=== PATIENT | female | born 2000 | race Two or more races ===

== ENCOUNTER 2024-05-30 23:29 | Emergency (ER) | payer MEDICAID, SELFPAY ==
[2024-05-30 23:33] VITALS: BMI 29.8
[2024-05-30 23:37] VITALS: BP 127/86; PULSE 81; RESP 17; O2SAT 100
--- NOTE | 2024-05-30 23:41 | EDNOTE_ITS ---
ED Wound/Laceration-RME/HPI General Chief Complaint: Wound/Laceration Stated Complaint: lac to rt arm Time Seen by Provider: 05/30/24 23:41 Arrival date/time: 05/30/24 23:29 RME / HPI RME / HPI narrative: Dr. Calabrese?s Main ED Evaluation: 24yo female presents to the ED for a chief complaint of a laceration to her right forearm. Patient has been drinking tonight. Reportedly, the patient had been angry and punched a window just [employer]. Patient is awake, but intoxicated, and is not providing any other history. Family applied a tourniquet prior to bringing the patient in. Related Data Home Medications ?Medication ?Instructions ?Recorded ?Confirmed prenat.vits,adrian,lsl-bygh-sthxt 1 tab PO QDAY 11/20/21 11/20/21 Previous Rx's ?Medication ?Instructions ?Recorded ferrous sulfate 325 mg (65 mg 325 mg PO BID #60 tabs 11/22/21 iron) tablet acetaminophen 500 mg tablet 1,000 mg (2 x 500 mg) PO Q6H PRN 05/31/24 pain 5 days #40 tabs cephalexin 500 mg capsule 500 mg PO TID 7 days #21 caps 05/31/24 ibuprofen 600 mg tablet 600 mg PO Q6H PRN pain 5 days #20 05/31/24 tabs Allergies Allergy/AdvReac Type Severity Reaction Status Date / Time No Known Allergies Allergy Verified 11/20/21 05:37 Review of Systems Review of Systems Systems Reviewed: All systems reviewed, normal except as documented Past Medical History Past Medical History NEUROLOGIC: Negative Neurological Disorders or Seizures CARDIAC: Negative Cardiac Disorders or Congestive Heart Failure RESPIRATORY: Negative Chronic Obstructive Pulmonary Disease (COPD) GASTROINTESTINAL: Negative Gastrointestinal Disorders, Hepatitis or Colorectal Cancer GENITOURINARY: Negative Genitourinary Disorders, Renal Disease or Prostate Cancer REPRODUCTIVE: Positive Previous Pregnancies; Negative Breast Cancer, Endometriosis, Genital Herpes, Gonorrhea, Pelvic Inflammatory Disease, Syphilis, Testicular Cancer or Uterine Prolapse MUSCULOSKELETAL: Negative Musculoskeletal Disorders or Bone Cancer ENDOCRINE: Negative Endocrine Disorders, Diabetes Mellitus Type 1 or Diabetes Mellitus Type 2 HEMATOLOGIC: Negative Blood Disorders PSYCHO/SOCIAL: Positive Depression, Anxiety and Depression (CO UNSELING, MEDS) OTHER HISTORY: Positive Hospitalization; Negative Autoimmune Disease, Down Syndrome, Developmental Delay, Shingles, Falls, Blood Transfusions, Blood Transfusion Reaction, Anesthesia Reactions, Organ Transplant, Chemotherapy, Radiation Therapy, Hyperbaric Therapy, MRSA, VRSA, Vancomycin-Resistant Enterococci, Human Immunodeficiency Virus (HIV), Chicken Pox, Measles, Mumps, Rubella (Stateless Measles), Pertussis, Clostridium Difficile, Cancer, Breast Cancer, Cervical Cancer, Colorectal Cancer, Lung Cancer, Ovarian Cancer, Prostate Cancer or Testicular Cancer Family History FAMILY HISTORY: Positive Family Cardiac Disorders (FATHER, MOTHER- HTN, FATHER- HIGH CHOLESTEROL.); Negative Family Psychiatric Problems, Family Respiratory Disorders, Family Gastrointestinal Problems, Family Cancer, Family Surgery or Family Anesthesia Reaction Surgical History SURGICAL: Negative Section or Organ Transplant Social History SMOKING STATUS: Unknown if ever smoked SECOND HAND EXPOSURE: No SUBSTANCE USE: does not use ED Exam Narrative Physical exam: GENERAL APPEARANCE: alert and oriented x 4, well-developed, well-nourished, no acute distress VITALS: All vitals were reviewed and the pulse ox is 100% on room air, which is normal according to my interpretation. HEENT: Normocephalic, atraumatic; pupils equal, round, reactive to light; EOMI; mucous membranes pink, moist; oropharynx clear NECK: Supple LUNGS: CTABL; no wheezes, no rales, no rhonchi HEART: Regular rate, regular rhythm; normal S1, S2; no murmurs ABDOMEN: non distended; normal BS; soft, no tenderness, no guarding, no rebound; no masses, no organomegaly, no hernia BACK: no CVA tenderness EXTREMITIES: 7 cm open wound with exposed subcutaneous fat and muscle to the right lateral forearm, there is a lacerated large vein that is dripping dark blo od; no edema NEUROLOGIC: awake; alert and oriented x4; cranial nerves II-XII grossly intact; no focal sensory or motor deficits PSYCHIATRIC: appropriate mood and affect SKIN: warm, dry, normal color; no rashes Course Quality Measures none Orders Category Date Time Status Bedside Blood Glucose NOW Care 05/30/24 23:[address] Screening NOW Care 05/30/24 23:57 Completed Oracle Etl Developer NOW Care 05/30/24 23:43 Completed Continuous Pulse Oximetry NOW Care 05/30/24 23:43 Completed Insert IV NOW Care 05/30/24 23:44 Completed NPO NOW Care 05/30/24 23:[address] angio UE RT Stat Exams 05/30/24 23:56 Completed XR hand RT 2V Stat Exams 05/30/24 23:57 Completed Alcohol, Blood Medical Stat Lab 05/30/24 23:55 Completed CBC Stat Lab 05/30/24 23:55 Completed Comprehensive Metabolic Panel Stat Lab 05/30/24 23:55 Completed Drug Screen,Urine Stat Lab 05/31/24 00:31 Completed HCG Qualitative,Urine Stat Lab 05/31/24 00:31 Completed Lactate (Lactic Acid) Stat Lab 05/30/24 23:55 Completed Lactic Acid, 3 HR Stat Lab 05/31/24 02:55 Completed Partial Thromboplastin Time Stat Lab 05/30/24 23:55 Completed Prothrombin Time with INR Stat Lab 05/30/24 23:55 Completed Troponin I Stat Lab 05/30/24 23:55 Completed Urinalysis Stat Lab 05/31/24 00:31 Completed Lidocaine 1% 20 ml [Xylocaine 1% 20 ML] Med 05/31/24 06:20 Discontinued 20 ml IM X1 ONE Lidocaine 1% 20 ml [Xylocaine 1% 20 ML] Med 05/31/24 06:23 Discontinued 20 ml IM X1 ONE Lidocaine 1% 20 ml [Xylocaine 1% 20 ML] Med 05/31/24 04:47 Discontinued 40 ml .ROUTE .STK-MED ONE Lidocaine 1% 20 ml [Xylocaine 1% 20 ML] Med 05/31/24 06:19 Discontinued 40 ml IM X1 ONE Lidocaine Inj 2% 20 ml [Xylocaine Inj 2% 20 ml] Med 05/31/24 04:49 Discontinued 40 ml INFL X1 ONE Ringers Lactated 1000 ml [Lactated Ringers] 1,000 ml Med 05/30/24 23:41 Discontinued IV 999 mls/hr Ringers Lactated 1000 ml [Lactated Ringers] 1,000 ml Med 05/30/24 23:42 Discontinued IV 999 mls/hr Sodium Chloride 0.9% 1000 ml [Ns] 1,000 ml Med 05/31/24 03:08 Discontinued IV 999 mls/hr ceFAZolin/D5W 1 GM IVPB [Ancef Ivpb] Med 05/30/24 23:59 Discontinued 1 gm in 50 ml IV X1 Vital Signs Vital signs: Vital Signs Pulse Rate 81 05/30/24 23:37 Respiratory Rate 17 05/30/24 23:37 Blood Pressure 127/86 H 05/30/24 23:37 Pulse Oximetry (%) 100 05/30/24 23:37 Procedures -ED Laceration Laceration 1: Site: upper extremity (forearm) Side (If applicable): right Size (cm): 7 Description: other (open) Depth: involves muscle layer (exposed subcutaneous fat and muscle) Local Anesthetic: lidocaine 1% Amount of anesthesia used (mL): 9 Pre-repair: wound explored and irrigated extensively Skin layer closed with: vicryl Size (cm): 4-0 Number of sutures: 19 Technique: simple, interrupted Subcutaneous layer closed with: vicryl Size: 4-0 Number of sutures: 10 Technique: simple, interrupted Muscle layer closed with: vicryl Size: 4-0 Number of sutures: 10 Technique: simple, interrupted Wound / Laceration MDM Narrative MDM Narrative:: Scribe Attestation: 05/30/24 - Kristyn Walker am scribing for and in the presence of Dr. Calabrese. Patient data External records reviewed:: [facility] previous records (Per chart review, patient has no relevant previous ED visits.) Clinical information provided by:: patient Social determinants that could affect healthcare access:: alcohol use Patient has the following chronic illnesses:: none How is presenting disease/condition affected by chronic disease/condition?: no chronic disease Evaluation data The following diagnostics were reviewed and interpreted by me:: lab results and radiology exam(s) Lab and/or radiology exams considered but not ordered:: none Interpretation Summary: CBC is normal, PT and INR are normal, PTT is normal, Potassium is slightly low at 3.1, Lactic Acid is elevated at 3.1, troponin is normal, Blood alcohol is elevated at 266.0, UA is unremarkable, HCG is negative, UDS is positive for marijuana, according to my interpretation. Right hand x-ray shows no fracture, no dislocation, no foreign body, according to my interpretation. -------- Telerad Preliminary Report Draft Patient: NICKOLAS WASHINGTON. Record#: [id number] Birthdate: 2000 Age/Sex: 24 / F Location: [facility] Attending Dr: Ordering Physician: Date of Service: Procedure(s): Accession Number(s): cc: ~ CT angiogram of right upper extremity with intravenous contrast (axial sections with sagittal and coronal reformats) May 31, 2024 0021 hours Clinical History: Trauma, large laceration Comparison: No prior study is available for comparison. Findings: There is a large soft tissues laceration of the posterolateral surface of the upper third of right forearm. No contrast extravasation. No evidence of arterial injury, occlusion or thrombus. The subclavian, axillary and brachial arteries are well opacified and patent. No evidence of arterial injury, occlusion or thrombus. The radial and ulnar arteries are patent. No evidence of fracture. Impression: Large soft tissues laceration of posterolateral surface of upper third of the right forearm. No evidence of arterial injury, occlusion or thrombus. No evidence of fracture. Report Electronically Signed By: Amish Márquez 05/31/2024 2:49:40 AM [EST] Medications / Prescriptions Medications or Prescriptions considered but not ordered:: none Medication administrations:: Medication Administration History Discontinued Medications Lactated Ringer's (Lactated Ringers) 1,000 mls @ 999 mls/hr IV .Q1H1M ONE Stop: 05/31/24 00:41 Last Infusion: 05/31/24 01:11 Dose: Infused Documented By: Admin: 05/30/24 23:43 Dose: 999 mls/hr Documented By: DELILAH Lactated Ringer's (Lactated Ringers) 1,000 mls @ 999 mls/hr IV .Q1H1M ONE Stop: 05/31/24 00:42 Last Infusion: 05/31/24 01:11 Dose: Infused Documented By: Admin: 05/30/24 23:44 Dose: 999 mls/hr Documented By: DELILAH Cefazolin Sodium/Dextrose (Ancef Ivpb) 1 gm in 50 mls @ 100 mls/hr IV X1 ONE Stop: 05/31/24 00:28 Last Infusion: 05/31/24 02:12 Dose: Infused Documented By: Admin: 05/31/24 00:40 Dose: 100 mls/hr Documented By: DELILAH Sodium Chloride (Ns) 1,000 mls @ 999 mls/hr IV .Q1H1M ONE Stop: 05/31/24 04:08 Last Infusion: 05/31/24 05:13 Dose: Infused Documented By: Admin: 05/31/24 03:45 Dose: 999 mls/hr Documented By: DELILAH Lidocaine HCl (Lidocaine Inj 2% 20 Ml Vial) 40 ml INFL X1 ONE Stop: 05/31/24 04:50 Last Admin: 05/31/24 06:18 Dose: Not Given Documented By: KD Non-Admin Reason: Discontinued Lidocaine HCl (Lidocaine Hcl 1% 20 Ml Vial) Confirm Administered Dose 40 ml .ROUTE .STK-MED ONE Stop: 05/31/24 04:48 Last Admin: 05/31/24 06:01 Dose: Not Given Documented By: KD Non-Admin Reason: Discontinued Lidocaine HCl (Lidocaine Hcl 1% 20 Ml Vial) 40 ml IM X1 ONE Stop: 05/31/24 06:20 Last Admin: 05/31/24 06:24 Dose: Not Given Documented By: KD Non-Admin Reason: Discontinued Lidocaine HCl (Lidocaine Hcl 1% 20 Ml Vial) 20 ml IM X1 ONE Stop: 05/31/24 06:21 Last Admin: 05/31/24 06:25 Dose: 20 ml Documented By: KD Lidocaine HCl (Lidocaine Hcl 1% 20 Ml Vial) 20 ml IM X1 ONE Stop: 05/31/24 06:24 Last Admin: 05/31/24 06:26 Dose: 20 ml Documented By: KD see above, if any Consultations Consultation(s) initiated? (list below): Yes Consultation #1 (Physician, Specialty, Details): Discussed case with [Dr. Wellington, trauma surgeon from [facility]] regarding [consultation]. Discussed patients ED course, exam findings, labs, and radiology results. Requests a CTA of the right arm. Time: 23:41 Diagnosis Wound Differential Diagnosis: laceration and other (alcohol intoxication, polysubstance abuse, venous bleed, arterial bleed) Most likely diagnosis given after review of the tests above:: see below Admission Indicated Admission indicated?: not indicated Admission Request Was there a request for admission?: No Disposition Plan Disposition Plan: Discharge Discharge Attestation Discharge Attestation: The patient and all family members were given an opportunity to ask questions and understood the discharge instructions. Discharge instructions specifically effects, indications for sooner follow up or return to the emergency department, and the expected course of current diagnosis. Patient condition: Stable Critical Care Time Critical Care Time Critical Care Time: Yes Total Critical Care Time (min.): 35 Attestation: The high probability of sudden, clinically significant deterioration in the patient?s condition required the highest level of my preparedness to intervene urgently. The services I provided to this patient were to treat and/or prevent clinically significant deterioration. Services included the following: chart data review, reviewing nursing notes and/or old charts, documentation time, literacy consultant collaboration regarding findings and treatment options, medication orders and management, direct patient care, vital sign assessments and ordering, interpreting and reviewing diagnostic studies and lab tests. Aggregate critical care time includes only time during which I was engaged in work directly related to the patient?s care, as described above, whether at bedside or elsewhere in the Emergency Department. It did not include time spent performing other reported procedures or the services of residents, students, nurses or physician assistants. Discharge Plan Plan Patient Disposition: HOME (Self Care) Disposition Comment: Stable for discharge Patient condition on transfer: Stable Prescriptions/Referrals Prescriptions/Med Rec: New ibuprofen 600 mg tablet 600 mg PO Q6H PRN (Reason: pain) 5 Days Qty: 20 0RF acetaminophen 500 mg tablet 1,000 mg PO Q6H PRN (Reason: pain) 5 Days Qty: 40 0RF cephalexin 500 mg capsule 500 mg PO TID 7 Days Qty: 21 0RF No Action prenat.vits,adrian,eve-cerm-tckua Tablet 1 tab PO QDAY ferrous sulfate 325 mg (65 mg iron) tablet 325 mg PO BID Qty: 60 2RF Referrals: Smith Mortensen MD [Primary Care Provider] - In 1 week Problem List Clinical Impression: Laceration of forearm, Alcohol intoxication Patient/Caregiver Discharge Instructions Discharge Activity: activity as tolerated Education Materials: ED Alcohol Intoxication, ED Laceration: All Closures Additional Instructions: Please have the sutures removed in 7 days. You can have this done here in the emergency department, in the [facility] or in urgent care. You should take the antibiotics until they are completely gone. Take the acetaminophen and the ibuprofen for pain as needed You should keep this wound covered. Use [id number] antibiotic ointment on the wound. Print Language: Divehi Stand Alone Forms: Sylvia Award Info., Work/School Release, Patient Portal Info Letter
[2024-05-30] MEDS: RINGERS LACTATED 1000 ML 1,000 ML 999 ML IV ×2 (23:43→23:44)
[2024-05-30 23:45] VITALS: BP 127/87; PULSE 126; RESP 18; O2SAT 100
[2024-05-30 23:46] VITALS: PULSE 132
--- NOTE | 2024-05-30 23:56 | XR_ITS ---
Examination: CTA right upper extremity with intravenous contrast 2-D reconstructions 3-D reconstructions, vascular Date and time of exam: May 31, 2024 0021 hrs. Indications: Patient punched a window with right arm today with lacerations to the right arm CTDI: vol (mGy) 12.3 DLP: (mGycm) 976 Technique: Multiple axial images right upper extremity post intravenous administration 60 cc [id number] 2-D sagittal and coronal reconstructions. 3-D angiographic renderings, 3-D volume renderings, 3D post processing, vascular maximum intensity projections obtained. Low dose protocols were performed. One or more of the following dose reduction techniques were used; automated exposure control, adjustment of the mA and/or KV according to patient size, use of iterative reconstruction technique. Findings: Right innominate, right subclavian right axillary arteries intact Right brachial artery radial arteries intact There is poor filling of the ulnar artery Large soft tissue defect lateral right forearm No abnormal contrast extravasation depicted Impression: Large soft tissue laceration lateral right forearm Right subclavian axillary brachial and radial arteries are well visualized and intact There is poor visualization of the ulnar artery No abnormal contrast extravasation from the arm arterial system noted Recommend follow-up ultrasound arterial Doppler of the right forearm as clinically warranted
[2024-05-30 23:57] LABS: Lactate (Lactic Acid) 3.1 mMol/L (0.4-2.0)
--- NOTE | 2024-05-30 23:57 | XR_ITS ---
Examination: Hand, right 2 views Technique: Hand AP, lateral 2 views Date and time of exam: 29/06/2023 1159 hrs. Indications: Right hand lacerations and swelling today Findings: Soft tissue swelling at the level of the first metacarpal phalangeal joint No opaque foreign body No fracture These are nonstandard images Impression: Limited study No opaque foreign bodies noted
[2024-05-31 00:05] LABS: Basophils % (Auto) 0 % (0-2.5); Eosinophils # (Auto) 0.1 Thou/mm3 (0.0-0.5); Eosinophils % (Auto) 1 % (0-10); Hematocrit 36.7 % (36.0-46.0); Hemoglobin 12.8 g/dL (12.0-16.0); Immature Granulocytes % (Auto) 0 % (0-0); Immature Granulocytes Auto 0.01 Thou/mm3 (0.00-0.00); Lymphocytes # (Auto) 4.7 Thou/mm3 (1.0-4.8); Lymphocytes % (Auto) 46 % (10-50); Mean Corpuscular HGB Conc 34.9 g/dl (31.0-37.0); Mean Corpuscular Hemoglobin 31.4 pg (25.0-35.0); Mean Corpuscular Volume 90 fL (80-100); Monocytes # (Auto) 0.7 Thou/mm3 (0.0-0.8); Monocytes % (Auto) 7 % (0-12); Neutrophils # (Auto) 4.7 Thou/mm3 (1.8-7.7); Neutrophils % (Auto) 46 % (37-80); Nucleated Red Blood Cell % 0 /100 WBC (0); Platelet Count 304 Thou/mm3 (140-440); RDW Standard Deviation 41.2 fL (36.4-46.3); Red Blood Count 4.07 Miln/mm3 (4.00-5.20); White Blood Count 10.3 Thou/mm3 (3.6-11.0)
[2024-05-31 00:21] LABS: Partial Thromboplastin Time 24.8 Seconds (22.0-36.0); Prothrombin Time 11.3 Seconds (9.0-12.2)
[2024-05-31 00:24] LABS: Alanine Aminotransferase 37 U/L (10-49); Albumin, Serum 4.3 gm/dL (3.5-5.0); Albumin/Globulin Ratio 1.8 (1.2-2.2); Alkaline Phosphatase 82 U/L (46-116); Anion Gap 11 (7-16); Aspartate Amino Transferase 45 U/L (0-34); BUN/Creatinine Ratio 10 Ratio (12-20); Bilirubin,Total 1.1 mg/dL (0.3-1.2); Blood Urea Nitrogen 8 mg/dL (9-23); Calcium 9.3 mg/dL (8.3-10.6); Calcium (Corrected) 9.3 mg/dL (8.5-10.1); Carbon Dioxide 22.9 mMol/L (20.0-31.0); Chloride 109 mMol/L (98-107); Creatinine (Component) 0.8 mg/dL (0.6-1.3); Estimated Creatinine Clearance 116.3 mL/min (>60); Globulin 2.4 gm/dL (2.3-3.5); Glucose 132 mg/dL (74-106); Osmolality,Calculated 285 (275-295); Potassium 3.2 mMol/L (3.4-5.1); Sodium 143 mMol/L (136-145); Total Protein 6.7 gm/dL (5.7-8.2); Troponin I < 0.002 ng/mL (0.0-0.045); eGFR > 60 See Note
[2024-05-31 00:37] LABS: Collection Type, Urine Catheter
[2024-05-31] MEDS: ceFAZolin/D5W 1 GM IVPB 1 GM/50 ML BAG IV (00:40)
[2024-05-31 00:42] LABS: Bacteria,Urine Rare; Bilirubin,Urine Negative (Negative); Blood,Urine 1+ (Negative); Clarity,Urine Clear (Clear/Hazy); Color,Urine Colorless (Lt Yel-Yel); Glucose, Urine Negative (Negative); Ketones,Urine Negative (Negative); Leukocyte Esterase,Urine Negative (Negative); Nitrite,Urine Negative (Negative); Protein,Urine Negative (Neg - Trace); RBC,Urine 1 /hpf (0-3); Specific Gravity,Urine 1.006 (1.001-1.035); Squamous Epithelial Cell,Urine 2 /hpf (0-5); Urobilinogen,Urine Negative mg/dL (0.0-1.0); WBC,Urine 1 /hpf (0-5)
[2024-05-31 00:55] LABS: Amphetamine/Methamp Scrn,U Negative (Negative); Barbiturate Screen,Urine Negative (Negative); Benzodiazepines Screen,Urine Negative (Negative); Benzoylecgonine Screen, Ur Negative (Negative); Fentanyl Screen,Urine Negative (Negative); HCG Qualitative,Urine Negative; Opiate Screen,Urine Negative (Negative); THC Screen,Urine Positive (Negative)
--- NOTE | 2024-05-31 02:50 | PRELIM_ITS ---
CT angiogram of right upper extremity with intravenous contrast (axial sections with sagittal and cor onal reformats) May 31, 2024 0021 hours Clinical History: Trauma, large laceration Comparison: No prior study is available for comparison. Findings:There is a large soft tissues laceration of the po sterolateral surface of the upper third of right forearm. No contrast extravasation. No evidence of a rterial injury, occlusion or thrombus. The subclavian, axillary and brachial arteries are well opacif ied and patent. No evidence of arterial injury, occlusion or thrombus. The radial and ulnar arteries are patent. No evidence of fracture.Impression:Large soft tissues laceration of posterolateral surfac e of upper third of the right forearm. No evidence of arterial injury, occlusion or thrombus.No evide nce of fracture. Report Electronically Signed By: Amish Márquez 05/31/2024 2:49:40 AM [EST]
[2024-05-31 02:55] LABS: Reflex Lactate? Y
[2024-05-31 03:20] LABS: Lactic Acid, 3 HR 1.8 mMol/L (0.4-2.0)
[2024-05-31] MEDS: SODIUM CHLORIDE 0.9% 1000 ML 1,000 ML 999 ML IV (03:45)
[2024-05-31 06:05] VITALS: BP 121/73; PULSE 72; RESP 17; O2SAT 100
[2024-05-31] MEDS: LIDOCAINE HCL 1% 20 ML VIAL IM ×2 (06:25→06:26)
== END 2024-05-31 06:30 | disposition home or self-care (01) ==
PROVIDERS: Emergency Provider Emergency Medicine; PCP Family Medicine
DX: S51.811A Laceration without foreign body of right forearm, initial encounter (principal); F10.929 Alcohol use, unspecified with intoxication, unspecified; Y90.8 Blood alcohol level of 240 mg/100 ml or more
CPT/HCPCS: 12002; 36415; 36600; 73120; 73206; 80053; 80307; 80320; 81001; 81025; 82803; 83605; 84484; 85025; 85610; 85730; 96361; 96365; 99291; A4649; J0689; J3490; J7030; J7120; Q9967; G0480